=== PATIENT | female | born 1985 | race Hispanic/Latino ===

== ENCOUNTER 2022-01-24 01:27 | Emergency (ER) | payer SELFPAY ==
[2022-01-24] MEDS ORDERED: NA CHLORIDE 0.9% 1,000 ML ONE (02:31)
[2022-01-24] MEDS ORDERED: ONDANSETRON 4 MG/2 ML VIAL ONE (02:31)
[2022-01-24] MEDS ORDERED: LORazepam 2 MG/ML VIAL ONE ×2 (02:31→03:15)
[2022-01-24 02:36] LABS: Absolute Lymphocytes (CBC) 1.3 K/uL (0.7-4.9); Hematocrit 35.9 % (36.0-45.0); Lymphocytes % 7.4 % (15.3-44.8); MCV 88.8 fL (80-100); MPV 7.5 fL (7.6-11.3); RBC Red Blood Cell Count 4.04 M/uL (3.86-4.86)
[2022-01-24 02:56] LABS: Albumin 3.8 g/dL (3.4-5.0); Bilirubin Total 0.2 mg/dL (0.2-1.0); Potassium 3.8 mmol/L (3.5-5.1); Protein, Total 7.6 g/dL (6.4-8.2)
--- NOTE | 2022-01-24 03:58 | EDPHYS ---
Physician Documentation [facility] Name: Ethel Al Age: 36 yrs Sex: Female : 1985 Arrival Date: 01/24/2022 Time: 01:30 Bed 12 Private MD: ED Physician Juaquin Case HPI: 01/24 01:46 This 36 yrs old Female presents to ER via Unassigned with complaints of ms3 Negative reaction to edible. 01:46 36-year-old female presents with her for adverse reaction to edible THC. ms3 Patient states she was at a [employer] party where she ate an edible. Patient denies pain. Patient endorses nausea, vomiting, diarrhea, shortness of breath. Patient denies alleviating or inciting factors. Package states to eat one quarter of an edible and patient had 1 edible. LATHE HAND: 02:04 LMP 12/26/2021 vc1 Historical: - Allergies: 03:14 No Known Allergies; lp1 - Home Meds: 03:14 None [Active]; lp1 - PMHx: 03:14 None; lp1 - PSHx: 03:14 None; lp1 - Immunization history:: Adult Immunizations up to date. - Social history:: Smoking status: Patient denies any tobacco usage or history of. ROS: 01:46 Constitutional: Negative for fever, and chills. Neck: Negative for injury, pain, and ms3 swelling, Cardiovascular: Negative for chest pain, and palpitations. 01:46 Skin: Negative for injury, rash, and discoloration. 01:46 Respiratory: Positive for shortness of breath. 01:46 Abdomen/GI: Positive for nausea, vomiting, and diarrhea. 01:46 Psych: Positive for anxiety. 01:46 All other systems are negative. Exam: 01:46 Constitutional: This is a well developed, well nourished patient who is awake, alert, ms3 and in no acute distress. Head/Face: Normocephalic, atraumatic. Neck: Trachea midline, no cervical lymphadenopathy. Supple, full range of motion without nuchal rigidity, or vertebral point tenderness. No Meningismus. Chest/axilla: Normal chest wall appearance and motion. Nontender with no deformity. 01:46 Respiratory: Lungs have equal breath sounds bilaterally, clear to auscultation and percussion. No rales, rhonchi or wheezes noted. No increased work of breathing, no retractions or nasal flaring. Abdomen/GI: Soft, non-tender, with normal bowel sounds. No distension or tympany. No guarding or rebound. No evidence of tenderness throughout. Skin: Warm, dry with normal turgor. Normal color with no rashes, no lesions, and no evidence of cellulitis. MS/ Extremity: Pulses equal, no cyanosis. Neurovascular intact. Full, normal range of motion. Psych: Awake, alert, with orientation to person, place and time. Behavior, mood, and affect are within normal limits. 01:46 Cardiovascular: Rate: tachycardic, Rhythm: regular, Pulses: no pulse deficits are appreciated, Heart sounds: normal. Vital Signs: 01:59 Weight 58.97 kg; Height 5 ft. 2 in. (157.48 cm); Pain 0/10; vc1 02:04 BP 126 / 86; Pulse 144; Resp 18; Temp 98.1; Pulse Ox 100% ; vc1 02:46 BP 126 / 59; Pulse 148; Resp 18; Pulse Ox 98% on R/A; lp1 03:13 BP 110 / 56; Pulse 130; Resp 18; Pulse Ox 100% on R/A; lp1 01:59 Body Mass Index 23.78 (58.97 kg, 157.48 cm) vc1 MDM: 01:46 Differential diagnosis: Ingestion/exposure to THC Anxiety. Data reviewed: vital signs, ms3 nurses notes, lab test result(s), and as a result, I will discharge patient. 01:54 Patient medically screened. 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 Interpretation: normal. Counseling: I had a detailed discussion with the patient and/or guardian regarding: the historical points, exam findings, and any diagnostic results supporting the discharge/admit diagnosis, lab results, the need for outpatient follow up, to return to the emergency department if symptoms worsen or persist or if there are any questions or concerns that arise at home. ED course: On re-evaluation patient is improved, A/O x4, nad, non-toxic, ambulatory in ED, speaking full sentences.. 01/24 01:46 Order name: CBC with Diff; Complete Time: 03:24 ms3 01/24 01:46 Order name: CMP; Complete Time: 03:24 ms3 01/24 01:46 Order name: IV Saline Lock; Complete Time: 02:25 ms3 Administered Medications: 02:30 Drug: NS 0.9% 1000 ml Route: IV; Rate: 1 bolus; Site: right hand; lp1 02:30 Drug: Zofran (Ondansetron) 4 mg Route: IVP; Site: right hand; lp1 03:13 Follow up: Response: No adverse reaction lp1 02:35 Drug: Ativan (LORazepam) 0.5 mg Route: IVP; Site: right hand; lp1 03:08 Follow up: Response: Anxiety decreased lp1 03:09 Drug: Ativan (LORazepam) 0.5 mg {Note: Verbal order per Dr. Case.} Route: IVP; Site: lp1 right hand; Disposition Summary: 01/24/22 03:58 Discharge Ordered Location: Home ms3 Condition: Stable ms3 Diagnosis - Cannabis use, unspecified with anxiety disorder ms3 Followup: ms3 - With: Shahriar Walsh DO - When: 2 - 3 days - Reason: Recheck today's complaints Discharge Instructions: - Discharge Summary Sheet ms3 - Managing Anxiety, Adult ms3 Forms: - Medication Reconciliation Form ms3 - Thank You Letter ms3 - Antibiotic Education ms3 - Prescription Opioid Use ms3 Signatures: Dispatcher [employer] EDLorrie Davis RN RN lp1 Juaquin Case DO DO ms3
--- NOTE | 2022-01-24 03:58 | ER ---
Nurse's Notes [facility] Name: Ethel Al Age: 36 yrs Sex: Female : 1985 Arrival Date: 01/24/2022 Time: 01:30 Bed 12 Private MD: Diagnosis: Cannabis use, unspecified with anxiety disorder Presentation: 01/24 01:59 Chief complaint: Spouse and/or significant other states: "We were at a [employer] party and she vc1 took an edible that they bought at a gas station. She told me she started feeling weird and that she was freaking out.". Coronavirus screen: Vaccine status: Patient reports receiving the 2nd dose of the covid vaccine. [employer]. Ebola Screen: No symptoms or risks identified at this time. Initial Sepsis Screen: Does the patient meet any 2 criteria? No. Patient's initial sepsis screen is negative. Does the patient have a suspected source of infection? No. Patient's initial sepsis screen is negative. Risk Assessment: Do you want to hurt yourself or someone else? Patient reports no desire to harm self or others. Onset of symptoms was January 24, 2022. 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 - Social history:: Smoking status: Patient denies any tobacco usage or history of. Screenin:48 Abuse screen: Denies threats or abuse. Denies injuries from another. Nutritional lp1 screening: No deficits noted. Tuberculosis screening: No symptoms or risk factors identified. Fall Risk None identified. Assessment: 02:47 General: Appears well developed, well nourished, Behavior is anxious, restless. Pain: lp1 Denies pain. Neuro: Level of Consciousness is awake, alert, obeys commands, Oriented to person, place, time, situation. Cardiovascular: Patient's skin is warm and dry. Respiratory: Respiratory effort is even, unlabored. GI: Abdomen is non-distended, Reports nausea. : No signs and/or symptoms were reported regarding the genitourinary system. EENT: No signs and/or symptoms were reported regarding the EENT system. Derm: Skin is pink, warm \\T\\ dry. Musculoskeletal: No deficits noted. 03:00 Reassessment: Patient still appears restless, anxious; Provider notified. lp1 Vital Signs: 01:59 Weight 58.97 kg; Height 5 ft. 2 in. (157.48 cm); Pain 0/10; vc1 02:04 BP 126 / 86; Pulse 144; Resp 18; Temp 98.1; Pulse Ox 100% ; vc1 02:46 BP 126 / 59; Pulse 148; Resp 18; Pulse Ox 98% on R/A; lp1 03:13 BP 110 / 56; Pulse 130; Resp 18; Pulse Ox 100% on R/A; lp1 01:59 Body Mass Index 23.78 (58.97 kg, 157.48 cm) vc1 ED Course: 01:30 Patient arrived in ED. bp1 01:44 Juaquin Case DO is Attending Physician. ms3 02:04 Triage completed. vc1 02:04 Arm band placed on right wrist. vc1 02:25 CBC with Diff Sent. mh5 02:25 CMP Sent. mh5 02:25 Initial lab(s) drawn, by me, sent to lab. Inserted saline lock: 22 gauge in right mh5 antecubital area, using aseptic technique. Blood collected. 02:30 Inserted saline lock: 22 gauge in right hand, using aseptic technique. lp1 02:40 22g IV to R AC DC'd due to infiltration. lp1 02:48 Patient has correct armband on for positive identification. lp1 03:57 Shahriar Walsh DO is Referral Physician. ms3 04:39 No provider procedures requiring assistance completed. vc1 Administered Medications: 02:30 Drug: NS 0.9% 1000 ml Route: IV; Rate: 1 bolus; Site: right hand; lp1 02:30 Drug: Zofran (Ondansetron) 4 mg Route: IVP; Site: right hand; lp1 03:13 Follow up: Response: No adverse reaction lp1 02:35 Drug: Ativan (LORazepam) 0.5 mg Route: IVP; Site: right hand; lp1 03:08 Follow up: Response: Anxiety decreased lp1 03:09 Drug: Ativan (LORazepam) 0.5 mg {Note: Verbal order per Dr. Case.} Route: IVP; Site: 1 right hand; Medication: 02:48 VIS not applicable for this client. lp1 Outcome: 03:58 Discharge ordered by . ms3 04:39 Discharged to home ambulatory, with significant other. vc1 04:39 Condition: good 04:39 Discharge instructions given to patient, significant other, Instructed on discharge instructions, follow up and referral plans. Demonstrated understanding of instructions, follow-up care. 04:39 Patient left the ED. vc1 Signatures: Lorrie Jean Baptiste, RN RN lp1 Alee Sanchez [facility] Juaquin Case, DO [place] ms3 Gabriela Jain [facility] Ivelisse Lazcano, RN RN vc1
[2022-01-24 04:55] VITALS: TEMP 98.1
[2022-01-24 04:58] VITALS: BP 110/56; O2SAT 100
== END 2022-01-24 04:39 | disposition home or self-care (01) ==
LOC: ER 01:27
DX: F12.980 Cannabis use, unspecified with anxiety disorder (principal)
CPT/HCPCS: 36415; 80053; 85025; 96374; 96375; 99283; J2405; J7030